=== PATIENT | female | born 1955 | race Caucasian/White ===

== ENCOUNTER 2020-07-02 08:30 | Inpatient (IN) | payer OTHER ==
[~2020-07-02] VITALS: Ht 177.8 cm; Wt 97.5 kg
[2020-07-02] MEDS ORDERED: AMLODIPINE BESYL5 MG PO (13:26)
[2020-07-02] MEDS ORDERED: MICARDIS80 MG PO (13:26)
[2020-07-02] MEDS ORDERED: PROTONIX40 MG PO (13:27)
[2020-07-02] MEDS ORDERED: ZANAFLEX4 MG PO (13:27)
[2020-07-02] MEDS ORDERED: TREXALL5 MG PO (13:27)
[2020-07-02] MEDS ORDERED: SIMVASTATIN10 MG PO (13:28)
[2020-07-02] MEDS ORDERED: FOLIC ACID20 MG PO (13:28)
[2020-07-02] MEDS ORDERED: BONIVA150 MG PO (13:28)
[2020-07-02] MEDS ORDERED: MAXIMUM D3325 MCG PO (13:29)
[2020-07-02] MEDS ORDERED: CALCIUM500 M1 PO (13:29)
[2020-07-02] MEDS ORDERED: XARELTO20 MG PO (13:30)
[2020-07-02] MEDS ORDERED: HUMIRA10 MG/0.2 (13:30)
[2020-07-02] MEDS ORDERED: TRAM1TAB98 PO (13:30)
[2020-07-08] MEDS ORDERED: FOLIC ACID1 MG PO (15:26)
[2020-07-08] MEDS ORDERED: METHOTREXATE2.5 MG PO (15:28)
[2020-07-08] MEDS ORDERED: FOLINIC-PLUS C1 EACH PO (15:30)
[2020-07-11] MEDS ORDERED: ELIQUIS2.5 MG PO (08:29)
[2020-07-11] MEDS ORDERED: PERCOCET 5-3251 EACH PO (08:29)
[2020-07-11] MEDS ORDERED: DUI500 PO (08:29)
== END 2020-07-11 12:56 | DRG 470 ==
LOC: SURH 07-08 07:00 → O/R 07-08 07:00 → SURH 07-08 08:30
PROVIDERS: ADMIT Orthopaedic Surgery; ATTEND Orthopaedic Surgery
PROC: 0SR90J9 Replacement of Right Hip Joint with Synthetic Substitute, Cemented, Open Approach (ICD-10-PCS; principal; 2020-07-08 17:30)
DX: M16.11 Unilateral primary osteoarthritis, right hip (principal); D62 Acute posthemorrhagic anemia; M70.61 Trochanteric bursitis, right hip; M89.751 Major osseous defect, right pelvic region and thigh; I10 Essential (primary) hypertension

== ENCOUNTER 2020-10-03 10:08 | Outpatient (CLI) | payer OTHER ==
[~2020-10-03 10:08] MED LIST: AMLODIPINE BESYL5 MG PO; BONIVA150 MG PO; CALCIUM500 M1 PO; DUI500 PO; ELIQUIS2.5 MG PO; FOLIC ACID1 MG PO; FOLIC ACID20 MG PO; FOLINIC-PLUS C1 EACH PO; HUMIRA10 MG/0.2; MAXIMUM D3325 MCG PO; METHOTREXATE2.5 MG PO; MICARDIS80 MG PO; PERCOCET 5-3251 EACH PO; PROTONIX40 MG PO; SIMVASTATIN10 MG PO; TRAM1TAB98 PO; TREXALL5 MG PO; XARELTO20 MG PO; ZANAFLEX4 MG PO
[2020-10-24] MEDS ORDERED: BONIVA150 MG (01:56)
[2020-10-24] MEDS ORDERED: SIMVASTATIN5 MG (01:57)
[2020-10-24] MEDS ORDERED: PANTOPRAZOLE SO40 M2 (01:57)
[2020-10-24] MEDS ORDERED: XARELTO20 MG (01:57)
[2020-10-24] MEDS ORDERED: AMLODIPINE-OLM1 EACH (01:58)
[2020-10-24] MEDS ORDERED: DIALYVITE 800-1 EACH (01:58)
[2020-10-24] MEDS ORDERED: GRALISE600 MG (01:58)
[2020-10-24] MEDS ORDERED: MICARDIS40 MG (01:59)
[2020-10-24] MEDS ORDERED: FOLINIC-PLUS C1 EACH (01:59)
== END 2020-10-03 10:21 | disposition home or self-care (01) ==
LOC: NUCLEAR 10:08
PROVIDERS: ATTEND Specialist
DX: I87.303 Chronic venous hypertension (idiopathic) without complications of bilateral lower extremity (principal); I80.203 Phlebitis and thrombophlebitis of unspecified deep vessels of lower extremities, bilateral; I10 Essential (primary) hypertension; M05.79 Rheumatoid arthritis with rheumatoid factor of multiple sites without organ or systems involvement

== ENCOUNTER → 2020-10-24 | Emergency (ER) | payer OTHER ==
[~2020-10-24] VITALS: Ht 177.8 cm; Wt 90.7 kg
[~2020-10-24] MED LIST changes: +AMLODIPINE-OLM1 EACH; +BONIVA150 MG; +DIALYVITE 800-1 EACH; +FOLINIC-PLUS C1 EACH; +GRALISE600 MG; +MICARDIS40 MG; +PANTOPRAZOLE SO40 M2; +SIMVASTATIN5 MG; +XARELTO20 MG
== END | disposition left against medical advice (07) ==
LOC: ER 01:44 → CPU-OBS 01:45
DX: R07.89 Other chest pain (principal); M94.0 Chondrocostal junction syndrome [Tietze]